=== PATIENT | male | born 1985 | race Caucasian/White ===

== ENCOUNTER 2017-01-17 06:05 | Emergency (ER) | payer OTHER ==
--- NOTE | ~2017-01-17 | CT71 ---
[facility] A Service of [facility] RADIOLOGY TEXT RESULTS PATIENT: YESSICA SOSA LOCATION: [facility] : 81 UNIT #: [id number] AGE: [address]: Consuelo Griffith APRN SEX: M ORDER DR: [id number] [facility] [address] [place], [place] [address] [id number] E MR#: [id number] Acc #: [id number] NAME: YESSICA SOSA : 1985 SEX: M STUDY DATE/TIME: 01/17/2017 5:31 UNIT: [facility] ROOM: STUDY DESCRIPTION: CT Head Wo Contrast Attending Physician: Consuelo Griffith A.P.R.N. Ordering Physician: Consuelo Griffith A.P.R.N. Primary Care Physician: Primary Care Physician No MEDICAL IMAGING REPORT This report is preliminary unless electronic signature is present EXAM Noncontrast CT head, 01/17/2017 at 05:31 HISTORY Fall at 15:00 01/16/2017. Increased confusion and left side headache today. COMPARISON CT head without contrast 07/12/2001 is not available for correlation. No prior CT examinations at this institution for comparison. TECHNIQUE This CT exam was performed with one or more of the following radiation dose reduction techniques: automatic exposure control, adjustment of mA and/or kV according to patient size, and iterative reconstruction. FINDINGS Axial noncontrast images were obtained from the skull base to the vertex. Ventricular size and configuration are normal. There is no evidence of acute infarct or hemorrhage. There are no extra-axial fluid collections. No mass lesion or mass effect is seen. There are no skull fractures. 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 IMPRESSION Normal noncontrast head CT. Dictated by... Brandi Duncan M.D. THIS IS AN ELECTRONICALLY VERIFIED REPORT Brandi Duncan M.D. at 01/17/2017 10:03 PM DAVID/chandrika [facility] A Service of [facility] RADIOLOGY TEXT RESULTS PATIENT: YESSICA [id number] 81 UNIT #: [id number] AGE: [address]: Consuelo Griffith APRN SEX: M ORDER DR: TD: 01/17/2017 10:16 JOB #: [id number] MEDICAL IMAGING REPORT Page 1 of 1 COPY
--- NOTE | ~2017-01-17 | CR243 ---
[facility] A Service of [facility] RADIOLOGY TEXT RESULTS PATIENT: YESSICA SOSA LOCATION: [facility] : 81 UNIT #: [id number] AGE: [address]: Consuelo Griffith APRN SEX: M ORDER DR: [id number] [place] [id number] [place], [place] [address] [id number] E MR#: [id number] Acc #: [id number] NAME: YESSICA SOSA : 1985 SEX: M STUDY DATE/TIME: 01/17/2017 5:04 UNIT: [facility] ROOM: STUDY DESCRIPTION: CR Thoracic Spine 3 Views Attending Physician: Consuelo Griffith A.P.R.N. Ordering Physician: Consuelo Griffith A.P.R.N. Primary Care Physician: Primary Care Physician No MEDICAL IMAGING REPORT This report is preliminary unless electronic signature is present EXAM 3 views of the thoracic spine, 01/17/2017 HISTORY 31-year-old male with mid back pain today after slipping on grass and falling. COMPARISON None FINDINGS AP and lateral examination of the dorsal segment shows normal mineralization and a satisfactory anatomical dorsal kyphosis. All body heights, interspaces, and posterior elements are normal anatomically without any indication of malignancy, trauma, unusual paraspinal soft tissue density mass, or congenital defect. IMPRESSION Normal thoracic spine. Dictated by... Brandi Duncan M.D. THIS IS AN ELECTRONICALLY VERIFIED REPORT Brandi Duncan M.D. at 01/17/2017 10:03 PM NATY/chandrika TD: 01/17/2017 10:13 JOB #: [id number] MEDICAL IMAGING REPORT [facility] A Service of [facility] RADIOLOGY TEXT RESULTS PATIENT: YESSICA SOSA LOCATION: [facility] : 81 UNIT #: [id number] AGE: [address]: Consuelo Griffith APRN SEX: M ORDER DR: Page 1 of 1 COPY
--- NOTE | ~2017-01-17 | CR58 ---
[facility] A Service of [facility] RADIOLOGY TEXT RESULTS PATIENT: YESSICA SOSA LOCATION: [facility] : 81 UNIT #: [id number] AGE: [address]: Consuelo Griffith APRN SEX: M ORDER DR: [id number] [facility] [address] [place], [place] [address] [id number] E MR#: [id number] Acc #: [id number] NAME: YESSICA SOSA : 1985 SEX: M STUDY DATE/TIME: 01/17/2017 4:54 UNIT: [facility] ROOM: STUDY DESCRIPTION: CR Cervical Spine 2 or 3 Views Attending Physician: Consuelo Griffith A.P.R.N. Ordering Physician: Consuelo Griffith A.P.R.N. Primary Care Physician: Primary Care Physician No MEDICAL IMAGING REPORT This report is preliminary unless electronic signature is present EXAM 4-view cervical spine, 01/17/2017 HISTORY Neck and mid back pain today after slipping on grass and falling. COMPARISON None FINDINGS AP and lateral projections of the cervical spine show satisfactory preservation of the cervical lordosis. The cervical soft tissues are normal. All anterior and posterior elements in the cervical area are anatomically normal without identifiable fracture, dislocation, malignant lytic or sclerotic change, or arthritis. There is no congenital defect apparent. IMPRESSION Normal cervical spine. Dictated by... Brandi Duncan M.D. THIS IS AN ELECTRONICALLY VERIFIED REPORT Brandi Duncan M.D. at 01/17/2017 10:03 PM Alex TD: 01/17/2017 10:15 JOB #: [id number] MEDICAL IMAGING REPORT Page 1 of 1 COPY
== END 2017-01-17 06:37 | disposition home or self-care (01) ==
LOC: CED 06:05
DX: S16.1XXA Strain of muscle, fascia and tendon at neck level, initial encounter (principal); S39.012A Strain of muscle, fascia and tendon of lower back, initial encounter; S00.93XA Contusion of unspecified part of head, initial encounter; W01.0XXA Fall on same level from slipping, tripping and stumbling without subsequent striking against object, initial encounter; Y92.009 Unspecified place in unspecified non-institutional (private) residence as the place of occurrence of the external cause
CPT/HCPCS: 70450; 72040; 72072; 99284